=== PATIENT | male | born 1995 | race Caucasian/White ===

== ENCOUNTER 2016-10-30 01:06 | Emergency (ER) | payer SELFPAY ==
[~2016-10-30] VITALS: Ht 170.2 cm; Wt 86.2 kg
[2016-10-30 01:15] VITALS: BP 124/72
== END 2016-10-30 02:20 | disposition home or self-care (01) ==
LOC: ER 01:09
DX: T78.1XXA Other adverse food reactions, not elsewhere classified, initial encounter (principal); F17.210 Nicotine dependence, cigarettes, uncomplicated; F10.20 Alcohol dependence, uncomplicated; Y92.511 Restaurant or cafe as the place of occurrence of the external cause; Y93.89 Activity, other specified; Y99.8 Other external cause status
CPT/HCPCS: 99282; A4606; Z7610

== ENCOUNTER 2023-08-30 20:24 | Emergency (ER) | payer BC, MEDICAID ==
[~2023-08-30] VITALS: Ht 170.2 cm; Wt 72.6 kg
[2023-08-30 22:44] VITALS: BP 125/75; TEMP 98; O2SAT 100
== END 2023-08-30 22:45 | disposition home or self-care (01) ==
LOC: ER 20:26
DX: M79.18 Myalgia, other site (principal); F17.200 Nicotine dependence, unspecified, uncomplicated
CPT/HCPCS: 70160-TC; 73090-TC; 73130-TC

== ENCOUNTER 2023-10-31 20:12 | Emergency (ER) | payer BC ==
[~2023-10-31] VITALS: Ht 170.2 cm; Wt 74.8 kg
[2023-10-31] MEDS ORDERED: ONDANSETRON HCL/PF 4 MG/2 ML VIAL IVP ONE (21:00)
[2023-10-31] MEDS ORDERED: FAMOTIDINE/PF INJ 20 MG/2 ML VIAL IV ONE ×2 (21:00→21:18)
[2023-10-31] MEDS ORDERED: KETOROLAC TROMETHAMINE 15 MG/ML VIAL IV ONE (21:00)
[2023-10-31] MEDS ORDERED: IV NS 0.9% 1,000 ML BAG IV ONE (21:00)
[2023-10-31 21:09] LABS: APPEARANCE,URINE CLEAR (CLEAR); BILIRUBIN,URINE NEGATIVE (NEGATIVE); BLOOD, URINE NEGATIVE Ery/uL (NEGATIVE); COLOR,URINE YELLOW (YELLOW); KETONES,URINE TRACE mg/dL (NEGATIVE); LEUKOCYTE ESTERASE ,URINE NEGATIVE (NEGATIVE); NITRITE, URINE NEGATIVE (NEGATIVE); PROTEIN,URINE NEGATIVE (NEGATIVE); UGLUCOSE NEGATIVE (NEGATIVE)
[2023-10-31 21:15] LABS: BASOPHILS % (AUTO) 0.5 % (0.0-2.0); EOSINOPHILS # (AUTO) 0.4 K/uL (0.0-0.7); EOSINOPHILS % (AUTO) 5.1 % (0.0-6.0); HEMATOCRIT 46 % (39-51); HEMOGLOBIN 15.6 g/dL (13.5-17.5); LYMPHOCYTES # (AUTO) 2.4 K/uL (0.8-4.8); LYMPHOCYTES % (AUTO) 31.8 % (20.0-44.0); MEAN CORPUSCULAR HEMOGLOBIN 32 PG (26.0-33.0); MEAN CORPUSCULAR HGB CONC 34 g/dl (31.0-36.0); MEAN CORPUSCULAR VOLUME 94 fL (80-96); MONOCYTES # (AUTO) 0.5 K/uL (0.1-1.30); MONOCYTES % (AUTO) 7.2 % (2.0-12.0); NEUTROPHILS # (AUTO) 4.2 K/uL (1.8-8.9); NEUTROPHILS % (AUTO) 55.4 % (43.0-81.0); PLATELET COUNT (AUTO) 200 K/uL (150-450); RED BLOOD CELL COUNT(AUTO) 4.93 MIL/uL (4.5-6.0); RED CELL DISTRIBUTION WIDTH 12.9 % (11.5-15.0); WHITE BLOOD COUNT (AUTO) 7.6 K/uL (4.3-11.0)
[2023-10-31] MEDS ORDERED: ONDANSETRON HCL/PF 4 MG/2 ML VIAL ONE (21:18)
[2023-10-31] MEDS ORDERED: KETOROLAC TROMETHAMINE 15 MG/ML VIAL ONE (21:19)
[2023-10-31 21:27] LABS: ALBUMIN 4.4 g/dL (3.4-5.0); BILIRUBIN,DIRECT 0.1 mg/dL (0.0-0.2); BILIRUBIN,TOTAL 0.5 mg/dL (0.2-1.0); CALCIUM, SERUM 9.5 mg/dL (8.5-10.1); CREATININE 0.9 mg/dL (0.6-1.3); POTASSIUM 3.5 mmol/L (3.5-5.1); TOTAL PROTEIN, SERUM 8.4 g/dL (6.4-8.2)
[2023-10-31 22:08] VITALS: BP 118/72; TEMP 98; O2SAT 99
== END 2023-10-31 22:09 | disposition home or self-care (01) ==
LOC: ER 20:14
DX: R10.31 Right lower quadrant pain (principal); F17.200 Nicotine dependence, unspecified, uncomplicated
CPT/HCPCS: 99284; 74176; 96360; 85025; 80048; 87086; 83690; 80076; 81003; 36415; J7030; J1885; J2405; J3490

== ENCOUNTER 2024-01-18 20:36 | Emergency (ER) | payer BC ==
[~2024-01-18] VITALS: Ht 170.2 cm; Wt 79.4 kg
[2024-01-18 21:10] VITALS: TEMP 98
[2024-01-18] MEDS ORDERED: IBUPROFEN 400 MG TABLET ONE (21:28)
[2024-01-18] MEDS: IBUPROFEN 400 MG TABLET PO ONE (21:29)
[2024-01-18 21:35] LABS: APPEARANCE,URINE Clear (CLEAR); BILIRUBIN,URINE Negative (NEGATIVE); BLOOD, URINE Negative Ery/uL (NEGATIVE); COLOR,URINE YELLOW (YELLOW); KETONES,URINE Negative (NEGATIVE); LEUKOCYTE ESTERASE ,URINE Negative (NEGATIVE); NITRITE, URINE Negative (NEGATIVE); PROTEIN,URINE 30 mg/dl (NEGATIVE); UGLUCOSE Negative (NEGATIVE); UROBILINOGEN,URINE 0.2 EU/dL (0.2)
[2024-01-18 21:51] VITALS: BP 119/78; O2SAT 100
[2024-01-18 21:56] LABS: ADD URINE CULTURE NO; BACTERIA,URINE 1+ /HPF (None Seen); MUCUS,URINE Few /LPF (None Seen); RBC,URINE 0-2 /HPF (0-2); SQUAMOUS EPITHELIAL CELL,UR None Seen /HPF (None Seen); WBC,URINE 0-2 /HPF (0-3)
== END 2024-01-18 21:51 | disposition home or self-care (01) ==
LOC: EDUNIT# 20:36 → ER 20:37
DX: M54.50 Low back pain, unspecified (principal); F17.200 Nicotine dependence, unspecified, uncomplicated
CPT/HCPCS: 81001

== ENCOUNTER 2024-03-07 04:43 | Emergency (ER) | payer BC ==
[~2024-03-07] VITALS: Ht 170.2 cm; Wt 81.6 kg
[2024-03-07] MEDS ORDERED: dexaMETHasone SOD PHOSPHATE 1 ML ONE (05:11)
[2024-03-07] MEDS: dexaMETHasone SOD PHOSPHATE 4 MG/ML VIAL IM ONE (05:12)
[2024-03-07] MEDS ORDERED: ALBUTEROL FS 2.5 MG/0.5 ML VIAL.NEB ONE (05:18)
[2024-03-07 05:22] VITALS: O2SAT 93
[2024-03-07] MEDS: ALBUTEROL FS 2.5 MG/0.5 ML VIAL.NEB NEB ONE (05:22)
[2024-03-07 05:32] VITALS: O2SAT 100
[2024-03-07 05:49] VITALS: BP 122/79; TEMP 98.6; O2SAT 100
== END 2024-03-07 05:50 | disposition home or self-care (01) ==
LOC: ER 04:49
DX: J98.01 Acute bronchospasm (principal); F17.200 Nicotine dependence, unspecified, uncomplicated
CPT/HCPCS: 99283; 71045; 96372; 94640; J1100

== ENCOUNTER → 2025-10-08 | Emergency (ER) | payer BC ==
[~2025-10-08] VITALS: Ht 172.7 cm; Wt 72.6 kg
[~2025-10-08] MED LIST: ALBU8.5H8 INH; ALBUTEROL FS 2.5 MG/0.5 ML VIAL.NEB ONE; IPRATROPIUM NEB FS 0.5 MG/2.5 ML AMPUL.NEB ONE; PRED50TA PO; dexaMETHasone SOD PHOSPHATE 1 ML ONE
[2025-10-08] MEDS: dexaMETHasone SOD PHOSPHATE 4 MG/ML VIAL IM ONE (02:11)
[2025-10-08 02:14] VITALS: O2SAT 98
[2025-10-08] MEDS: ALBUTEROL FS 2.5 MG/0.5 ML VIAL.NEB NEB ONE (02:14)
[2025-10-08] MEDS: IPRATROPIUM NEB FS 0.5 MG/2.5 ML AMPUL.NEB NEB ONE (02:14)
[2025-10-08 02:27] VITALS: O2SAT 99
[2025-10-08 04:08] VITALS: BP 118/73; TEMP 98.6; O2SAT 98
== END | disposition home or self-care (01) ==
LOC: ER 00:49
DX: J98.01 Acute bronchospasm (principal); F17.200 Nicotine dependence, unspecified, uncomplicated; Z79.52 Long term (current) use of systemic steroids; Z98.2 Presence of cerebrospinal fluid drainage device; Z20.822 Contact with and (suspected) exposure to COVID-19
CPT/HCPCS: 99284; 71045; 87426; 96372; 87804 ×2; 94640; J1100; J7040